=== PATIENT | male | born 1945 | race Caucasian/White ===

== ENCOUNTER 2020-07-01 | Emergency (ER) | payer MEDICARE ==
[2020-07-01 12:45] LABS: HEMATOCRIT 34.3 % (39.0-50.0); HEMOGLOBIN 10.3 g/dl (14.0-18.0); IMMATURE GRANULOCYTES 0.5 % (0.0-5.0); MEAN CELL VOLUME 89.6 fL CALC (80.0-100.0); MEAN CORPUSCULAR HGB 26.9 pG CALC (26.0-32.0); NEUT# 9.08 thou/uL (1.82-7.42); RED BLOOD COUNT 3.83 mill/uL (4.70-6.10); RED CELL DISTRI WIDTH 16.4 % (11.5-15.5)
[2020-07-01 12:58] LABS: ALBUMIN 3.9 g/dL (3.2-5.0); BILIRUBIN, TOTAL 0.8 mg/dL (0.0-1.4); CREATININE 1.4 mg/dL (0.7-1.3); POTASSIUM 4.5 mmol/l (3.5-5.1)
[2020-07-01 13:05] LABS: ACT PARTIAL THROMBO TIME 32.8 SECONDS (20.0-32.5); INTERNATIONAL NORMALIZED RATIO 2.2 RATIO (0.7-1.3); PROTHROMBIN TIME 22.6 SECONDS (9.0-12.5)
[2020-07-01 13:08] LABS: D-DIMER 1.02 mg/L (0.19-0.60)
[2020-07-01] MEDS ORDERED: GLIPIZIDE10 MG PO (13:42)
[2020-07-01] MEDS ORDERED: PROTONIX40 M2 PO ×2 (13:43→13:47)
[2020-07-01] MEDS ORDERED: WARFARIN5 MG PO (13:44)
[2020-07-01] MEDS ORDERED: ATORVASTATIN CA80 MG PO (13:45)
[2020-07-01] MEDS ORDERED: CLOPIDOGREL75 MG PO (13:45)
[2020-07-01] MEDS ORDERED: GABAPENTIN100 MG PO (13:46)
[2020-07-01] MEDS ORDERED: JANUVIA50 MG PO (13:46)
[2020-07-01] MEDS ORDERED: METOPROL TAR25 MG PO (13:47)
[2020-07-01] MEDS ORDERED: LEVOTHYROXIN50 MCG PO (13:48)
== END 2020-07-01 21:00 ==
DX: E11.51 Type 2 diabetes mellitus with diabetic peripheral angiopathy without gangrene (principal); I70.235 Atherosclerosis of native arteries of right leg with ulceration of other part of foot; L97.519 Non-pressure chronic ulcer of other part of right foot with unspecified severity; L03.031 Cellulitis of right toe; S90.414A Abrasion, right lesser toe(s), initial encounter; I11.0 Hypertensive heart disease with heart failure; I50.9 Heart failure, unspecified; E03.9 Hypothyroidism, unspecified; X58.XXXA Exposure to other specified factors, initial encounter; Z79.84 Long term (current) use of oral hypoglycemic drugs; Z89.419 Acquired absence of unspecified great toe; Z20.822 Contact with and (suspected) exposure to COVID-19